=== PATIENT | male | born 1960 ===

== ENCOUNTER 2019-01-13 00:18 | Inpatient (IN) ==
[2019-01-13] MEDS ORDERED: SODIUM CHLORIDE 0.9% 1,000 ML IV STA (00:38)
[2019-01-13] MEDS ORDERED: ACETAMINOPHEN 325 MG TABLET PO PRN (00:38)
[2019-01-13] MEDS ORDERED: PROMETHAZINE 25 MG/1 ML VIAL IM PRN (00:38)
[2019-01-13] MEDS ORDERED: IBUPROFEN 800 MG TABLET PO STA (00:38)
[2019-01-13] MEDS ORDERED: HYDROmorphone 2 MG/1 ML VIAL IV PRN (00:38)
[2019-01-13] MEDS: LACTATED RINGERS 1,000 ML IV SCH ×3 (02:21→18:25)
[2019-01-13] MEDS: PIPERACILLIN/TAZOBACTAM 3,375 MG in SODIUM CHLORIDE 0.9% 100 ML IV SCH ×3 (04:18→20:28)
[2019-01-13 05:24] LABS: Basophils # 0.1 10*3/uL (0.0-0.2); Basophils % 0.3 % (0.0-0.8); Hematocrit 29.7 VOL% (42.0-52.0); Hemoglobin 9.8 GM/DL (14.0-18.0); Immature Granulocytes % 1.4 %; Immature Granulocytes Absolute 0.43 #; Lymphocytes # 0.7 10*3/uL (1.4-4.0); Lymphocytes % 2.3 % (21.2-54.2); Mean Corpuscular Volume 91.4 FL (87-102); Mean Platelet Volume 10.7 FL (9.6-12.0); Monocytes % 4.6 % (1.7-12.7); Neutrophils % 91.4 % (38.7-73.9); Platelet Count 162 T/CUMM (130-400); Red Blood Count 3.25 MC/CUMM (3.8-5.5); Red Cell Distribution Width 12.8 % (9.3-17.3); White Blood Count 30.7 T/CUMM (4-12)
[2019-01-13 05:25] LABS: Calcium 7.7 MG/DL (8.5-10.1); Osmolality,Calculated 293.4 MOS/KG (273-304)
[2019-01-13 06:24] LABS: Band Neutrophils 18 % (0-10); Lymphocytes 2 % (20-55); Metamyelocytes 2 %; Platelet Estimate Normal; Segmented Neutrophils 74 % (50-85); Total Cells Counted 100
[2019-01-13] MEDS ORDERED: LACTATED RINGERS 1,000 ML IV ONE ×2 (08:47→11:38)
[2019-01-13] MEDS: PANTOPRAZOLE 40 MG TABLET PO SCH (09:16)
[2019-01-13] MEDS ORDERED: LIDOCAINE 1% 20 ML VIAL ONE (10:25)
[2019-01-13] MEDS ORDERED: BUPIVACAINE 0.25% /EPI 10 ML VIAL ONE (10:25)
[2019-01-13] MEDS ORDERED: GLUCAGON 1 MG VIAL IM PRN ×2 (11:29→12:57)
[2019-01-13] MEDS ORDERED: DEXTROSE 50% 25 GM/50 ML VIAL IV PRN ×2 (11:29→12:57)
[2019-01-13] MEDS ORDERED: fentaNYL 100 MCG/2 ML VIAL ONE (11:37)
[2019-01-13] MEDS ORDERED: GLYCOPYRROLATE 0.4 MG/2 ML VIAL ONE (11:37)
[2019-01-13] MEDS ORDERED: propofoL 200 MG/20 ML VIAL IV ONE (11:37)
[2019-01-13] MEDS ORDERED: ONDANSETRON 4 MG/2 ML VIAL ONE (11:37)
[2019-01-13] MEDS ORDERED: MIDAZOLAM 2 MG/2 ML VIAL ONE (11:37)
[2019-01-13] MEDS ORDERED: SEVOFLURANE 1 UNIT/15 MINUTE INH ONE (11:37)
[2019-01-13] MEDS ORDERED: ROCURONIUM 100 MG/10 ML VIAL IV ONE (11:38)
[2019-01-13] MEDS ORDERED: PHENYLEPHRINE 1 MG/10 ML SYRINGE IV ONE (11:38)
[2019-01-13] MEDS ORDERED: NEOSTIGMINE 10 MG/10 ML VIAL ONE (11:38)
[2019-01-13] MEDS: INSULIN REGULAR 100 UNIT/ML SUBCUT SCH ×3 (12:02→20:29)
[2019-01-13] MEDS: GABAPENTIN 100 MG CAPSULE PO SCH (20:28)
[2019-01-14 02:18] LABS: Basophils % 0.2 % (0.0-0.8); Eosinophils # 0.1 10*3/uL (0.0-0.87); Eosinophils % 0.7 % (0.00-10.9); Hematocrit 28.9 VOL% (42.0-52.0); Hemoglobin 9.7 GM/DL (14.0-18.0); Immature Granulocytes % 0.4 %; Immature Granulocytes Absolute 0.07 #; Lymphocytes # 1.5 10*3/uL (1.4-4.0); Lymphocytes % 8.4 % (21.2-54.2); Mean Corpuscular HGB Conc 33.6 GM/DL (32-36); Mean Corpuscular Volume 90.6 FL (87-102); Mean Platelet Volume 10.3 FL (9.6-12.0); Monocytes % 4.2 % (1.7-12.7); Neutrophils % 86.1 % (38.7-73.9); Platelet Count 144 T/CUMM (130-400); Red Blood Count 3.19 MC/CUMM (3.8-5.5); White Blood Count 17.7 T/CUMM (4-12)
[2019-01-14 02:32] LABS: Calcium 7.7 MG/DL (8.5-10.1); Osmolality,Calculated 282.4 MOS/KG (273-304)
[2019-01-14] MEDS: LACTATED RINGERS 1,000 ML IV SCH ×3 (03:57→18:52)
[2019-01-14] MEDS: PIPERACILLIN/TAZOBACTAM 3,375 MG in SODIUM CHLORIDE 0.9% 100 ML IV SCH ×3 (03:58→21:17)
[2019-01-14] MEDS: INSULIN REGULAR 100 UNIT/ML SUBCUT SCH ×4 (07:52→21:16)
[2019-01-14] MEDS: ENALAPRIL 10 MG TABLET PO SCH (08:13)
[2019-01-14] MEDS: SIMVASTATIN 10 MG TABLET PO SCH (08:13)
[2019-01-14] MEDS: PANTOPRAZOLE 40 MG TABLET PO SCH (08:13)
[2019-01-14] MEDS: ONDANSETRON 4 MG/2 ML VIAL IV PRN ×2 (08:16→15:25)
[2019-01-14] MEDS: GABAPENTIN 100 MG CAPSULE PO SCH (21:16)
[2019-01-15] MEDS: PIPERACILLIN/TAZOBACTAM 3,375 MG in SODIUM CHLORIDE 0.9% 100 ML IV SCH ×2 (03:48→12:05)
[2019-01-15 05:22] LABS: Basophils % 0.2 % (0.0-0.8); Eosinophils # 0.1 10*3/uL (0.0-0.87); Eosinophils % 1.2 % (0.00-10.9); Hematocrit 30.2 VOL% (42.0-52.0); Hemoglobin 10.3 GM/DL (14.0-18.0); Immature Granulocytes % 0.4 %; Immature Granulocytes Absolute 0.04 #; Lymphocytes # 1.5 10*3/uL (1.4-4.0); Lymphocytes % 16.9 % (21.2-54.2); Mean Corpuscular HGB Conc 34.1 GM/DL (32-36); Mean Corpuscular Volume 88.8 FL (87-102); Monocytes % 9.5 % (1.7-12.7); Neutrophils % 71.8 % (38.7-73.9); Platelet Count 154 T/CUMM (130-400); Red Cell Distribution Width 12.5 % (9.3-17.3); White Blood Count 9.1 T/CUMM (4-12)
[2019-01-15 05:45] LABS: Calcium 8.4 MG/DL (8.5-10.1); Osmolality,Calculated 277.4 MOS/KG (273-304)
[2019-01-15] MEDS: INSULIN REGULAR 100 UNIT/ML SUBCUT SCH ×2 (07:48→11:26)
[2019-01-15] MEDS: ONDANSETRON 4 MG/2 ML VIAL IV PRN (08:32)
[2019-01-15] MEDS ORDERED: MAGNESIUM OXIDE 400 MG TABLET PO ONE (09:19)
[2019-01-15] MEDS: PANTOPRAZOLE 40 MG TABLET PO SCH (09:51)
[2019-01-15] MEDS: ENALAPRIL 10 MG TABLET PO SCH (09:52)
[2019-01-15] MEDS: SIMVASTATIN 10 MG TABLET PO SCH (09:56)
[2019-01-15] MEDS ORDERED: ONDANSETRON 4 MG TABLET PO ONE (12:02)
[2019-01-15 12:18] VITALS: BP 150/94
== END 2019-01-15 13:06 | disposition home or self-care (01) | DRG 342 ==
LOC: EDUNIT# → EDBD → N.ED 00:18 → N.EDINP 00:38 → N.3E 01:05
PROVIDERS: ADMIT Surgery; ATTEND Surgery